=== PATIENT | female | born 1980 | race Two or more races ===

== ENCOUNTER 2017-12-03 12:00 | Outpatient (CLI) | payer OTHER | END 2017-12-03 15:00 | disposition home or self-care (01) | LOC: RX STUDY 12:00 | DX: N93.8 Other specified abnormal uterine and vaginal bleeding (principal) ==

== ENCOUNTER → 2019-06-15 | Outpatient (CLI) | payer OTHER | END | disposition home or self-care (01) | LOC: PRENATAL 10:52 | DX: O99.89 Other specified diseases and conditions complicating pregnancy, childbirth and the puerperium (principal); O09.511 Supervision of elderly primigravida, first trimester; O35.3XX1 Maternal care for (suspected) damage to fetus from viral disease in mother, fetus 1; O09.811 Supervision of pregnancy resulting from assisted reproductive technology, first trimester; O36.80X1 Pregnancy with inconclusive fetal viability, fetus 1; Z36.82 Encounter for antenatal screening for nuchal translucency ==

== ENCOUNTER → 2019-08-08 | Outpatient (CLI) | payer OTHER | END | disposition home or self-care (01) | LOC: PRENATAL 09:47 | DX: O35.3XX2 Maternal care for (suspected) damage to fetus from viral disease in mother, fetus 2 (principal); O09.512 Supervision of elderly primigravida, second trimester; O09.812 Supervision of pregnancy resulting from assisted reproductive technology, second trimester ==

== ENCOUNTER → 2019-09-05 | Outpatient (CLI) | payer OTHER | END | disposition home or self-care (01) | LOC: PRENATAL 09:06 | DX: O09.513 Supervision of elderly primigravida, third trimester (principal); O26.843 Uterine size-date discrepancy, third trimester; O09.813 Supervision of pregnancy resulting from assisted reproductive technology, third trimester; O99.89 Other specified diseases and conditions complicating pregnancy, childbirth and the puerperium ==

== ENCOUNTER → 2019-11-04 | Outpatient (CLI) | payer OTHER | END | disposition home or self-care (01) | LOC: PRENATAL 10:43 | DX: O26.843 Uterine size-date discrepancy, third trimester (principal); O35.0XX0 Maternal care for (suspected) central nervous system malformation in fetus, not applicable or unspecified; O24.410 Gestational diabetes mellitus in pregnancy, diet controlled; Z36.89 Encounter for other specified antenatal screening ==

== ENCOUNTER 2023-12-29 14:09 | Outpatient (CLI) | payer OTHER ==
[~2023-12-29 14:09] MED LIST: CEPHALEXIN500 M1 PO
== END 2023-12-29 14:10 | disposition home or self-care (01) ==
LOC: PRENATAL 14:09
PROVIDERS: ATTEND Obstetrics & Gynecology Maternal & Fetal Medicine
DX: O36.80X0 Pregnancy with inconclusive fetal viability, not applicable or unspecified (principal); O09.521 Supervision of elderly multigravida, first trimester; O34.219 Maternal care for unspecified type scar from previous cesarean delivery; O99.281 Endocrine, nutritional and metabolic diseases complicating pregnancy, first trimester; E03.9 Hypothyroidism, unspecified; O24.911 Unspecified diabetes mellitus in pregnancy, first trimester; Z3A.11 11 weeks gestation of pregnancy

== ENCOUNTER 2024-02-26 09:56 | Outpatient (CLI) | payer OTHER | END 2024-02-26 10:00 | disposition home or self-care (01) | LOC: PRENATAL 09:56 | PROVIDERS: ATTEND Obstetrics & Gynecology Maternal & Fetal Medicine | DX: O44.00 Complete placenta previa NOS or without hemorrhage, unspecified trimester (principal); O09.529 Supervision of elderly multigravida, unspecified trimester; O34.219 Maternal care for unspecified type scar from previous cesarean delivery; O99.280 Endocrine, nutritional and metabolic diseases complicating pregnancy, unspecified trimester; O24.319 Unspecified pre-existing diabetes mellitus in pregnancy, unspecified trimester; O09.819 Supervision of pregnancy resulting from assisted reproductive technology, unspecified trimester; O28.5 Abnormal chromosomal and genetic finding on antenatal screening of mother; Z3A.20 20 weeks gestation of pregnancy ==

== ENCOUNTER → 2024-03-25 09:25 | Outpatient (CLI) | payer OTHER | END | disposition home or self-care (01) | LOC: PRENATAL 09:25 | PROVIDERS: ATTEND Obstetrics & Gynecology Maternal & Fetal Medicine | DX: O26.849 Uterine size-date discrepancy, unspecified trimester (principal); O09.529 Supervision of elderly multigravida, unspecified trimester; O34.219 Maternal care for unspecified type scar from previous cesarean delivery; O99.280 Endocrine, nutritional and metabolic diseases complicating pregnancy, unspecified trimester; O99.891 Other specified diseases and conditions complicating pregnancy; O24.319 Unspecified pre-existing diabetes mellitus in pregnancy, unspecified trimester; O09.819 Supervision of pregnancy resulting from assisted reproductive technology, unspecified trimester; O28.5 Abnormal chromosomal and genetic finding on antenatal screening of mother; Z3A.24 24 weeks gestation of pregnancy ==

== ENCOUNTER 2024-04-22 09:29 | Outpatient (CLI) | payer OTHER | END 2024-04-22 09:31 | disposition home or self-care (01) | LOC: PRENATAL 09:29 | PROVIDERS: ATTEND Obstetrics & Gynecology Maternal & Fetal Medicine | DX: O26.849 Uterine size-date discrepancy, unspecified trimester (principal); O09.529 Supervision of elderly multigravida, unspecified trimester; O34.219 Maternal care for unspecified type scar from previous cesarean delivery; O99.280 Endocrine, nutritional and metabolic diseases complicating pregnancy, unspecified trimester; O24.319 Unspecified pre-existing diabetes mellitus in pregnancy, unspecified trimester; O09.819 Supervision of pregnancy resulting from assisted reproductive technology, unspecified trimester; O28.5 Abnormal chromosomal and genetic finding on antenatal screening of mother; Z3A.29 29 weeks gestation of pregnancy ==

== ENCOUNTER → 2024-05-20 09:26 | Outpatient (CLI) | payer OTHER | END | disposition home or self-care (01) | LOC: PRENATAL 09:26 | PROVIDERS: ATTEND Obstetrics & Gynecology Maternal & Fetal Medicine | DX: O26.849 Uterine size-date discrepancy, unspecified trimester (principal); O36.8199 Decreased fetal movements, unspecified trimester, other fetus; O09.529 Supervision of elderly multigravida, unspecified trimester; O34.219 Maternal care for unspecified type scar from previous cesarean delivery; O99.280 Endocrine, nutritional and metabolic diseases complicating pregnancy, unspecified trimester; O24.319 Unspecified pre-existing diabetes mellitus in pregnancy, unspecified trimester; O09.819 Supervision of pregnancy resulting from assisted reproductive technology, unspecified trimester; O28.5 Abnormal chromosomal and genetic finding on antenatal screening of mother; O40.1XX0 Polyhydramnios, first trimester, not applicable or unspecified; Z3A.34 34 weeks gestation of pregnancy ==

== ENCOUNTER 2024-06-17 09:20 | Outpatient (CLI) | payer OTHER | END 2024-06-17 09:21 | disposition home or self-care (01) | LOC: PRENATAL 09:20 | PROVIDERS: ATTEND Obstetrics & Gynecology Maternal & Fetal Medicine | DX: O26.849 Uterine size-date discrepancy, unspecified trimester (principal); O36.8199 Decreased fetal movements, unspecified trimester, other fetus; O09.529 Supervision of elderly multigravida, unspecified trimester; O34.219 Maternal care for unspecified type scar from previous cesarean delivery; O99.280 Endocrine, nutritional and metabolic diseases complicating pregnancy, unspecified trimester; O24.319 Unspecified pre-existing diabetes mellitus in pregnancy, unspecified trimester; O09.819 Supervision of pregnancy resulting from assisted reproductive technology, unspecified trimester; O28.5 Abnormal chromosomal and genetic finding on antenatal screening of mother; Z3A.36 36 weeks gestation of pregnancy ==

== ENCOUNTER 2024-07-01 10:26 | Inpatient (IN) | payer OTHER ==
[~2024-07-01] VITALS: Ht 157.5 cm; Wt 2.7 kg
[2024-07-01 11:34] LABS: HEMATOCRIT 39.3 % (36.0-45.00); HEMOGLOBIN 13.4 g/dL (12.0-15.00); MEAN CELL VOLUME 76.9 fL (80.00-100.00); MEAN CORPUSCULAR HEMOGLOBIN 26.1 pg (27.00-32.0); PLATELET COUNT 203 K/uL (150-450); RED BLOOD COUNT 5.11 M/uL (4.00-6.00); RED CELL DISTRIBUTION WIDTH 20.3 % (11.5-14.5)
[2024-07-01] MEDS ORDERED: PRENATAL (11:43)
[2024-07-01] MEDS ORDERED: METFORMIN HCL500 M3 PO (11:43)
[2024-07-01] MEDS ORDERED: ASA81 MG PO (11:44)
[2024-07-01] MEDS ORDERED: SYNTHROID100 MCG PO (11:44)
[2024-07-01] MEDS ORDERED: MILLIPRED5 MG PO (11:45)
[2024-07-01] MEDS ORDERED: HYDROXYCHLOROQ200 MG PO (11:46)
[2024-07-01 11:50] LABS: PH,URINE 6.5 (5.0-8.0); URINE APPEARANCE Clear; URINE BILIRRUBIN Negative (NEGATIVE); URINE BLOOD Negative; URINE COLOR Yellow; URINE GLUCOSE Negative (NEGATIVE); URINE KETONE 15 (NEGATIVE); URINE LEUKOCYTE Negative; URINE NITRATE Negative; URINE PROTEIN Negative (NEGATIVE)
[2024-07-01 11:51] LABS: INR 0.96; PARTIAL THROMBOPLASTIN TIME 26.8 SECONDS (22.0-34.0); PROTHROMBIN TIME 10.5 SECONDS (9.0-11.5)
[2024-07-01 11:54] LABS: URINE BACTERIA 526.1 uL (0.0-1933); URINE EPITHELIAL CELLS 24.5 uL (0.0-38.8); URINE RBC 2.5 uL (0.0-20.8); URINE WBC 10.2 uL (0.0-23.2)
[2024-07-06 07:11] VITALS: BP 108/75
[2024-07-06] MEDS ORDERED: CLINDAMYCIN PHOSPHATE 150 MG/ML (900mg) ONE (12:59)
[2024-07-06] MEDS ORDERED: ERYTHROMYCIN BASE OPHT 1GM EACH TUBE OP ONE (15:14)
[2024-07-06] MEDS ORDERED: OXYTOCIN 10 UNITS/ML VIAL ONE (15:14)
[2024-07-06] MEDS ORDERED: PROMETHAZINE HCL 50 MG/ML AMPUL IM PRN (17:00)
[2024-07-06] MEDS ORDERED: MEPERIDINE HCL/PF 50 MG/ML VIAL IM PRN (17:00)
[2024-07-06] MEDS ORDERED: MORPHINE SULFATE 4 MG/ML VIAL IV ONE ×2 (19:25→20:05)
[2024-07-06] MEDS ORDERED: PROMETHAZINE HCL 50 MG/ML AMPUL IM ONE (21:07)
[2024-07-06 21:55] VITALS: BP 115/78
[2024-07-07 00:25] VITALS: BP 123/83
[2024-07-07 06:41] LABS: HEMATOCRIT 35.1 % (36.0-45.00); HEMOGLOBIN 11.9 g/dL (12.0-15.00); MEAN CELL VOLUME 77.1 fL (80.00-100.00); MEAN CORPUSCULAR HEMOGLOBIN 26.1 pg (27.00-32.0); MEAN CORPUSCULAR HGB CONC 33.9 g/dl (32.0-36.0); PLATELET COUNT 169 K/uL (150-450); RED BLOOD COUNT 4.55 M/uL (4.00-6.00); RED CELL DISTRIBUTION WIDTH 19.7 % (11.5-14.5)
[2024-07-07 08:00] VITALS: BP 123/80
[2024-07-07] MEDS ORDERED: OxyCODONE HCL/APAP UD (PERCOCET) PO PRN (08:00)
[2024-07-07] MEDS ORDERED: DOCUSATE SODIUM 100MG CAP PO SCH (08:00)
[2024-07-07] MEDS ORDERED: PNV,CALCIUM 72/IRON/FOLIC ACID 1 TAB TABLET PO SCH (09:00)
[2024-07-07] MEDS ORDERED: SIMETHICONE 125 MG CAPSULE PO SCH (09:00)
[2024-07-07 16:00] VITALS: BP 120/80
[2024-07-08 01:09] VITALS: BP 114/76
[2024-07-08 08:54] VITALS: BP 100/80
[2024-07-08 16:30] VITALS: BP 118/73
[2024-07-09 01:29] VITALS: BP 103/70
[2024-07-09 06:05] VITALS: BP 112/79
[2024-07-09 08:36] VITALS: BP 102/70
[2024-07-09 16:42] VITALS: BP 114/79
== END 2024-07-09 16:44 | disposition home or self-care (01) | DRG 788 ==
LOC: O/R 07-06 06:50 → LDR 07-06 10:24 → OB/GYN 07-06 18:23
PROVIDERS: ADMIT Obstetrics & Gynecology; ATTEND Obstetrics & Gynecology
PROC: 4A1HXCZ Monitoring of Products of Conception, Cardiac Rate, External Approach (ICD-10-PCS; 2024-07-06)
PROC: 10D00Z1 Extraction of Products of Conception, Low, Open Approach (ICD-10-PCS; principal; 2024-07-06 14:30)
DX: O34.211 Maternal care for low transverse scar from previous cesarean delivery (principal); Z3A.39 39 weeks gestation of pregnancy; Z37.0 Single live birth; Z20.822 Contact with and (suspected) exposure to COVID-19